=== PATIENT | female | born 1940 ===

== ENCOUNTER 2024-03-14 19:56 | Outpatient (REF) | payer MEDICARE, BC, SELFPAY ==
[2024-03-14 14:44] LABS: Bilirubin Negative (Negative); Blood Trace-intact (Negative); Clarity Sl Cloudy (Clear); Glucose Negative (Negative); Ketones Negative (Negative); Leukocyte Esterase Small (Negative); Nitrite Negative (Negative); Urobilinogen 0.2 mg/dL (Up to 0.2)
[2024-03-14 15:10] LABS: RBC 0-2 HPF (0-2)
[2024-03-14 15:11] LABS: Bacteria Moderate HPF (Negative); C & S Indicated? Yes; Casts Negative LPF (Negative); Crystals Negative HPF (Negative); Epithelial Cells Rare HPF (Negative); Mucus Negative (Negative)
== END 2024-03-14 19:57 | disposition home or self-care (01) ==
LOC: LBN 19:56
PROVIDERS: PCP Nurse Practitioner Family; Visit Provider Nurse Practitioner
DX: C49.0 Malignant neoplasm of connective and soft tissue of head, face and neck (principal)
CPT/HCPCS: 87077; 81003; 81015; 87086; 87186

== ENCOUNTER 2024-03-28 02:46 | Outpatient (RCR) | payer MEDICARE, BC, SELFPAY ==
[2024-03-21] MEDS: Normal Saline Flush 10 ML SYR IVP (08:37)
[2024-03-21 09:18] LABS: Abs Immature Grans 0.03 10^3/uL (0.0-0.06); Absolute Basophil Count 0.05 10^3/uL (0.0-0.2); Absolute Eosinophil Count 0.42 10^3/uL (0.0-0.7); Absolute Monocyte Count 0.59 10^3/uL (0.1-0.8); Absolute Neutrophil Count 4.73 10^3/uL (1.2-6.7); Basophils % 0.7 %; Eosinophils % 5.7 %; HCT 37.9 % (36.0-46.0); HGB 12.5 g/dL (11.2-15.7); Immature Grans % 0.4 %; Lymphocytes % 20.5 %; MCH 29.8 pg (27.0-33.0); MCV 90 fL (80-95); MPV 10.3 fL (8.0-11.0); Monocytes % 8.1 %; Neutrophils % 64.6 %; Platelet Count 255 10^3/uL (130-400); RDW 12.6 % (11.7-14.6); RDW-SD 42.1 fL; WBC 7.32 10^3/uL (4.4-10.8)
[2024-03-21 09:20] LABS: Bilirubin Negative (Negative); Blood Trace-intact (Negative); Clarity Sl Cloudy (Clear); Glucose Negative (Negative); Ketones Negative (Negative); Leukocyte Esterase Large (Negative); Nitrite Positive (Negative); Specific Gravity <= 1.005 (1.005-1.025); Urobilinogen 0.2 mg/dL (Up to 0.2)
[2024-03-21 09:28] LABS: Bacteria Many HPF (Negative); C & S Indicated? Yes; Casts Negative LPF (Negative); Crystals Negative HPF (Negative); Epithelial Cells Few HPF (Negative); Mucus Negative (Negative); RBC 0-2 HPF (0-2); WBC >50 HPF (0-5)
[2024-03-21 09:34] LABS: ALT 19 U/L (14-59); AST 10 U/L (15-37); Albumin 3.3 g/dL (3.4-5.0); Alkaline Phosphatase 71 U/L (46-116); BUN 11 mg/dL (7-18); Bilirubin, Total 0.6 mg/dL (0.2-1.0); CREATININE 0.8 mg/dL (0.55-1.02); Calcium 8.7 mg/dL (8.5-10.1); Chloride 99 mmol/L (98-107); Estimated GFR 73.98 (mL/min/1.73m2); Glucose 138 mg/dL (74-106); Potassium 3.7 mmol/L (3.5-5.1); Sodium 137 mmol/L (136-145)
[2024-03-28] MEDS: Normal Saline Flush 10 ML SYR IVP (09:39)
[2024-03-28 10:00] LABS: Abs Immature Grans 0.05 10^3/uL (0.0-0.06); Absolute Basophil Count 0.05 10^3/uL (0.0-0.2); Absolute Eosinophil Count 0.16 10^3/uL (0.0-0.7); Absolute Monocyte Count 0.45 10^3/uL (0.1-0.8); Absolute Neutrophil Count 3.69 10^3/uL (1.2-6.7); Basophils % 0.8 %; Eosinophils % 2.6 %; HCT 38.3 % (36.0-46.0); HGB 12.4 g/dL (11.2-15.7); Immature Grans % 0.8 %; MCH 29.2 pg (27.0-33.0); MCHC 32.4 % (32.0-36.0); MCV 90 fL (80-95); Monocytes % 7.3 %; Neutrophils % 59.5 %; Platelet Count 347 10^3/uL (130-400); RBC 4.24 10^6/uL (3.93-5.22); RDW 12.8 % (11.7-14.6)
[2024-03-28 10:02] LABS: Bilirubin Negative (Negative); Blood Trace-intact (Negative); Clarity Sl Cloudy (Clear); Glucose Negative (Negative); Ketones Negative (Negative); Leukocyte Esterase Moderate (Negative); Nitrite Positive (Negative); Urobilinogen 0.2 mg/dL (Up to 0.2); pH 6.5 (5-8)
[2024-03-28 10:12] LABS: Bacteria Many HPF (Negative); C & S Indicated? Yes; WBC >50 HPF (0-5)
[2024-03-28 10:20] LABS: ALT 19 U/L (14-59); AST 12 U/L (15-37); Albumin 3.5 g/dL (3.4-5.0); Alkaline Phosphatase 71 U/L (46-116); Anion Gap 9.5 mmol/L (3-11); BUN 9 mg/dL (7-18); Bilirubin, Total 0.36 mg/dL (0.2-1.0); CO2 27.5 mmol/L (21.0-32.0); CREATININE 0.8 mg/dL (0.55-1.02); Calcium 8.4 mg/dL (8.5-10.1); Chloride 100 mmol/L (98-107); Estimated GFR 73.98 (mL/min/1.73m2); Glucose 137 mg/dL (74-106); Potassium 3.8 mmol/L (3.5-5.1); Sodium 137 mmol/L (136-145)
== END 2024-04-03 23:59 | disposition home or self-care (01) ==
LOC: INF 02:46
PROVIDERS: PCP Nurse Practitioner Family; Visit Provider Nurse Practitioner
DX: C49.0 Malignant neoplasm of connective and soft tissue of head, face and neck (principal); Z45.2 Encounter for adjustment and management of vascular access device
CPT/HCPCS: 36591; 80053; 87077; 81003; 81015; 85025; 87086; 87186

== ENCOUNTER 2024-03-30 12:38 | Outpatient (REF) | payer MEDICARE, BC, SELFPAY ==
[2024-03-30 15:48] LABS: Bilirubin Negative (Negative); Blood Trace-intact (Negative); Clarity Sl Cloudy (Clear); Glucose Negative (Negative); Ketones Negative (Negative); Leukocyte Esterase Large (Negative); Nitrite Negative (Negative); Specific Gravity <= 1.005 (1.005-1.025); Urobilinogen 0.2 mg/dL (Up to 0.2)
[2024-03-30 16:10] LABS: Bacteria Many HPF (Negative); C & S Indicated? Yes; Casts Negative LPF (Negative); Crystals Negative HPF (Negative); Epithelial Cells Rare HPF (Negative); Mucus Negative (Negative); RBC 0-2 HPF (0-2); WBC >50 HPF (0-5)
== END 2024-03-30 12:39 | disposition home or self-care (01) ==
LOC: LBN 12:38
PROVIDERS: PCP Nurse Practitioner Family; Visit Provider Nurse Practitioner
DX: C49.0 Malignant neoplasm of connective and soft tissue of head, face and neck (principal)
CPT/HCPCS: 87077; 81003; 81015; 87086; 87186

== ENCOUNTER 2024-04-25 04:52 | Outpatient (RCR) | payer MEDICARE, BC, SELFPAY ==
[2024-04-12] MEDS: Normal Saline Flush 10 ML SYR IVP (09:12)
[2024-04-12 09:21] LABS: Abs Immature Grans 0.04 10^3/uL (0.0-0.06); Absolute Basophil Count 0.05 10^3/uL (0.0-0.2); Absolute Eosinophil Count 0.11 10^3/uL (0.0-0.7); Absolute Monocyte Count 1.12 10^3/uL (0.1-0.8); Absolute Neutrophil Count 4.29 10^3/uL (1.2-6.7); Basophils % 0.7 %; Eosinophils % 1.5 %; HCT 37.7 % (36.0-46.0); HGB 12.3 g/dL (11.2-15.7); Immature Grans % 0.5 %; Lymphocytes % 23.3 %; MCH 29.4 pg (27.0-33.0); MCHC 32.6 % (32.0-36.0); MCV 90 fL (80-95); MPV 9.5 fL (8.0-11.0); Monocytes % 15.3 %; Neutrophils % 58.7 %; Platelet Count 304 10^3/uL (130-400); RBC 4.18 10^6/uL (3.93-5.22); RDW 13.8 % (11.7-14.6); RDW-SD 45.4 fL; WBC 7.31 10^3/uL (4.4-10.8)
[2024-04-12 09:40] LABS: ALT 24 U/L (14-59); AST 17 U/L (15-37); Albumin 3.6 g/dL (3.4-5.0); Alkaline Phosphatase 69 U/L (46-116); Anion Gap 5.3 mmol/L (3-11); BUN 14 mg/dL (7-18); Bilirubin, Total 0.44 mg/dL (0.2-1.0); CO2 29.7 mmol/L (21.0-32.0); CREATININE 0.8 mg/dL (0.55-1.02); Calcium 8.5 mg/dL (8.5-10.1); Chloride 103 mmol/L (98-107); Estimated GFR 73.98 (mL/min/1.73m2); Glucose 133 mg/dL (74-106); Sodium 138 mmol/L (136-145); Total Protein 6.8 g/dL (6.4-8.2)
[2024-04-18] MEDS: Normal Saline Flush 10 ML SYR IVP (09:44)
[2024-04-18 09:53] LABS: Absolute Basophil Count 0.06 10^3/uL (0.0-0.2); Absolute Eosinophil Count 0.08 10^3/uL (0.0-0.7); Absolute Lymphocyte Count 1.81 10^3/uL (1.2-3.4); Absolute Monocyte Count 0.31 10^3/uL (0.1-0.8); Basophils % 0.8 %; Eosinophils % 1.1 %; HCT 35.3 % (36.0-46.0); HGB 11.9 g/dL (11.2-15.7); Immature Grans % 1.3 %; Lymphocytes % 24.3 %; MCH 30.4 pg (27.0-33.0); MCHC 33.7 % (32.0-36.0); MCV 90 fL (80-95); Monocytes % 4.2 %; Neutrophils % 68.3 %; Platelet Count 266 10^3/uL (130-400); RBC 3.91 10^6/uL (3.93-5.22); RDW 13.6 % (11.7-14.6); RDW-SD 44.8 fL; WBC 7.46 10^3/uL (4.4-10.8)
[2024-04-18 09:55] LABS: Bilirubin Negative (Negative); Blood Moderate (Negative); Clarity Clear (Clear); Glucose Negative (Negative); Ketones Negative (Negative); Leukocyte Esterase Small (Negative); Nitrite Negative (Negative); Urobilinogen 0.2 mg/dL (Up to 0.2)
[2024-04-18 10:09] LABS: Bacteria Few HPF (Negative); C & S Indicated? Yes; Casts 0-2 Hyaline LPF (Negative); Crystals Negative HPF (Negative); Epithelial Cells Few HPF (Negative); Mucus Negative (Negative); Other Cells Few Renal (Negative); WBC 20-50 HPF (0-5)
[2024-04-18 10:12] LABS: ALT 19 U/L (14-59); AST 14 U/L (15-37); Albumin 3.4 g/dL (3.4-5.0); Alkaline Phosphatase 71 U/L (46-116); Anion Gap 8.2 mmol/L (3-11); BUN 18 mg/dL (7-18); Bilirubin, Total 0.55 mg/dL (0.2-1.0); CO2 26.8 mmol/L (21.0-32.0); CREATININE 0.8 mg/dL (0.55-1.02); Calcium 8.4 mg/dL (8.5-10.1); Chloride 101 mmol/L (98-107); Estimated GFR 73.98 (mL/min/1.73m2); Glucose 107 mg/dL (74-106); Potassium 3.9 mmol/L (3.5-5.1); Sodium 136 mmol/L (136-145); Total Protein 6.7 g/dL (6.4-8.2)
[2024-04-25] MEDS: Normal Saline Flush 10 ML SYR IVP (10:03)
[2024-04-25 10:06] LABS: Abs Immature Grans 0.03 10^3/uL (0.0-0.06); Absolute Basophil Count 0.03 10^3/uL (0.0-0.2); Absolute Eosinophil Count 0.11 10^3/uL (0.0-0.7); Absolute Monocyte Count 0.31 10^3/uL (0.1-0.8); Absolute Neutrophil Count 2.35 10^3/uL (1.2-6.7); Basophils % 0.7 %; Eosinophils % 2.6 %; HCT 33.7 % (36.0-46.0); HGB 11.1 g/dL (11.2-15.7); Immature Grans % 0.7 %; Lymphocytes % 33.1 %; MCH 29.7 pg (27.0-33.0); MCHC 32.9 % (32.0-36.0); MCV 90 fL (80-95); MPV 10.1 fL (8.0-11.0); Monocytes % 7.3 %; Neutrophils % 55.6 %; Platelet Count 261 10^3/uL (130-400); RBC 3.74 10^6/uL (3.93-5.22); RDW 13.7 % (11.7-14.6); RDW-SD 45.2 fL; WBC 4.23 10^3/uL (4.4-10.8)
[2024-04-25 10:30] LABS: ALT 21 U/L (14-59); AST 15 U/L (15-37); Albumin 3.3 g/dL (3.4-5.0); Alkaline Phosphatase 66 U/L (46-116); Anion Gap 9.5 mmol/L (3-11); BUN 11 mg/dL (7-18); Bilirubin, Total 0.44 mg/dL (0.2-1.0); CO2 28.5 mmol/L (21.0-32.0); CREATININE 0.8 mg/dL (0.55-1.02); Calcium 8.6 mg/dL (8.5-10.1); Chloride 102 mmol/L (98-107); Estimated GFR 73.98 (mL/min/1.73m2); Glucose 116 mg/dL (74-106); Potassium 3.9 mmol/L (3.5-5.1); Sodium 140 mmol/L (136-145); Total Protein 6.6 g/dL (6.4-8.2)
== END 2024-05-04 23:59 | disposition home or self-care (01) ==
LOC: INF 04:52
PROVIDERS: PCP Nurse Practitioner Family; Visit Provider Nurse Practitioner
DX: C49.0 Malignant neoplasm of connective and soft tissue of head, face and neck (principal)
CPT/HCPCS: 36591; 80053; 81003; 81015; 85025; 87086

== ENCOUNTER 2024-05-23 03:07 | Outpatient (RCR) | payer MEDICARE, BC, SELFPAY ==
[2024-05-09] MEDS: Normal Saline Flush 10 ML SYR IVP (08:26)
[2024-05-09 08:46] LABS: Abs Immature Grans 0.12 10^3/uL (0.0-0.06); HCT 35.8 % (36.0-46.0); HGB 11.4 g/dL (11.2-15.7); MCHC 31.8 % (32.0-36.0); MCV 91 fL (80-95); MPV 9.3 fL (8.0-11.0); Platelet Count 346 10^3/uL (130-400); RBC 3.93 10^6/uL (3.93-5.22); RDW 14.5 % (11.7-14.6); RDW-SD 48.1 fL; WBC 7.72 10^3/uL (4.4-10.8)
[2024-05-09 09:01] LABS: ALT 18 U/L (14-59); AST 14 U/L (15-37); Alkaline Phosphatase 74 U/L (46-116); Anion Gap 7.3 mmol/L (3-11); BUN 8 mg/dL (7-18); Bilirubin, Total 0.42 mg/dL (0.2-1.0); CO2 28.7 mmol/L (21.0-32.0); CREATININE 0.9 mg/dL (0.55-1.02); Calcium 8.5 mg/dL (8.5-10.1); Chloride 103 mmol/L (98-107); Estimated GFR 64.23 (mL/min/1.73m2); Glucose 140 mg/dL (74-106); Potassium 3.7 mmol/L (3.5-5.1); Sodium 139 mmol/L (136-145); Total Protein 6.6 g/dL (6.4-8.2)
[2024-05-09 09:38] LABS: Absolute Eosinophil Count 0.23 10^3/uL (0.0-0.7); Absolute Lymphocyte Count 2.16 10^3/uL (1.2-3.4); Absolute Monocyte Count 0.69 10^3/uL (0.1-0.8); Absolute Neutrophil Count 4.32 10^3/uL (1.2-6.7); Atypical Lymphocytes % 1 %; Bands % 0 %; Metamyelocytes % 3
[2024-05-09 09:39] LABS: Diff Comment Manual Differential; Other Cells % 1; RBC Morphology Normal
[2024-05-16] MEDS: Normal Saline Flush 10 ML SYR IVP (09:12)
[2024-05-16 09:41] LABS: Abs Immature Grans 0.05 10^3/uL (0.0-0.06); Absolute Basophil Count 0.07 10^3/uL (0.0-0.2); Absolute Eosinophil Count 0.18 10^3/uL (0.0-0.7); Absolute Lymphocyte Count 1.15 10^3/uL (1.2-3.4); Eosinophils % 2.5 %; HCT 34.1 % (36.0-46.0); HGB 11.1 g/dL (11.2-15.7); Immature Grans % 0.7 %; Lymphocytes % 15.9 %; MCH 28.9 pg (27.0-33.0); MCHC 32.6 % (32.0-36.0); MCV 89 fL (80-95); MPV 9.8 fL (8.0-11.0); Neutrophils % 68.9 %; Platelet Count 336 10^3/uL (130-400); RBC 3.84 10^6/uL (3.93-5.22); RDW 14.2 % (11.7-14.6); RDW-SD 45.3 fL; WBC 7.25 10^3/uL (4.4-10.8)
[2024-05-16 10:04] LABS: ALT 14 U/L (14-59); AST 14 U/L (15-37); Albumin 3.2 g/dL (3.4-5.0); Alkaline Phosphatase 73 U/L (46-116); Anion Gap 8.2 mmol/L (3-11); BUN 16 mg/dL (7-18); Bilirubin, Total 0.76 mg/dL (0.2-1.0); CO2 28.8 mmol/L (21.0-32.0); CREATININE 0.9 mg/dL (0.55-1.02); Calcium 8.9 mg/dL (8.5-10.1); Chloride 100 mmol/L (98-107); Estimated GFR 64.23 (mL/min/1.73m2); Glucose 157 mg/dL (74-106); Potassium 3.9 mmol/L (3.5-5.1); Sodium 137 mmol/L (136-145); Total Protein 7.2 g/dL (6.4-8.2)
[2024-05-23] MEDS: Normal Saline Flush 10 ML SYR IVP (08:58)
[2024-05-23 09:21] LABS: Abs Immature Grans 0.03 10^3/uL (0.0-0.06); Absolute Basophil Count 0.04 10^3/uL (0.0-0.2); Absolute Eosinophil Count 0.11 10^3/uL (0.0-0.7); Absolute Lymphocyte Count 0.83 10^3/uL (1.2-3.4); Absolute Monocyte Count 0.76 10^3/uL (0.1-0.8); Absolute Neutrophil Count 2.24 10^3/uL (1.2-6.7); Eosinophils % 2.7 %; HGB 10.6 g/dL (11.2-15.7); Immature Grans % 0.7 %; Lymphocytes % 20.7 %; MCH 29.2 pg (27.0-33.0); MCHC 33.1 % (32.0-36.0); MCV 88 fL (80-95); MPV 9.8 fL (8.0-11.0); Neutrophils % 55.9 %; Platelet Count 323 10^3/uL (130-400); RBC 3.63 10^6/uL (3.93-5.22); RDW 14.3 % (11.7-14.6); RDW-SD 45.3 fL; WBC 4.01 10^3/uL (4.4-10.8)
[2024-05-23 09:34] LABS: ALT 12 U/L (14-59); AST 13 U/L (15-37); Albumin 2.7 g/dL (3.4-5.0); Alkaline Phosphatase 64 U/L (46-116); Anion Gap 8.7 mmol/L (3-11); BUN 11 mg/dL (7-18); Bilirubin, Total 0.62 mg/dL (0.2-1.0); CO2 27.3 mmol/L (21.0-32.0); Chloride 100 mmol/L (98-107); Glucose 127 mg/dL (74-106); Potassium 3.9 mmol/L (3.5-5.1); Sodium 136 mmol/L (136-145); Total Protein 6.9 g/dL (6.4-8.2)
== END 2024-06-04 23:59 | disposition home or self-care (01) ==
LOC: INF 03:07
PROVIDERS: PCP Nurse Practitioner Family; Visit Provider Nurse Practitioner
DX: C49.0 Malignant neoplasm of connective and soft tissue of head, face and neck (principal); Z45.2 Encounter for adjustment and management of vascular access device
CPT/HCPCS: 36591; 80053; 85025

== ENCOUNTER 2024-06-15 12:09 | Outpatient (CLI) | payer MEDICARE, SELFPAY ==
[2024-06-15 12:13] LABS: ALT 11 U/L (14-59); AST 17 U/L (15-37); Albumin 2.1 g/dL (3.4-5.0); Alkaline Phosphatase 78 U/L (46-116); Anion Gap 3.8 mmol/L (3-11); BUN 15 mg/dL (7-18); Bilirubin, Total 0.46 mg/dL (0.2-1.0); CO2 29.2 mmol/L (21.0-32.0); CREATININE 0.9 mg/dL (0.55-1.02); Calcium 8.5 mg/dL (8.5-10.1); Chloride 100 mmol/L (98-107); Estimated GFR 64.23 (mL/min/1.73m2); Glucose 104 mg/dL (74-106); Magnesium 1.8 mg/dL (1.8-2.4); Potassium 4.1 mmol/L (3.5-5.1); Sodium 133 mmol/L (136-145); Total Protein 6.4 g/dL (6.4-8.2)
== END 2024-06-15 12:10 | disposition home or self-care (01) ==
LOC: LBO 12:14
PROVIDERS: PCP Nurse Practitioner Family; Visit Provider Preventive Medicine Undersea and Hyperbaric Medicine
DX: C49.0 Malignant neoplasm of connective and soft tissue of head, face and neck (principal)
CPT/HCPCS: 36415; 80053; 83735

== ENCOUNTER 2024-07-20 11:14 | Outpatient (RCR) | payer MEDICARE, BC, SELFPAY ==
[2024-07-20] MEDS: Normal Saline Flush 10 ML SYR IVP (12:11)
[2024-07-20 12:29] LABS: ALT 15 U/L (14-59); AST 15 U/L (15-37); Albumin 2.6 g/dL (3.4-5.0); Alkaline Phosphatase 79 U/L (46-116); Anion Gap 5.5 mmol/L (3-11); BUN 12 mg/dL (7-18); Bilirubin, Total 0.28 mg/dL (0.2-1.0); CO2 28.5 mmol/L (21.0-32.0); CREATININE 0.8 mg/dL (0.55-1.02); Calcium 8.9 mg/dL (8.5-10.1); Chloride 103 mmol/L (98-107); Estimated GFR 73.98 (mL/min/1.73m2); Glucose 92 mg/dL (74-106); Magnesium 1.9 mg/dL (1.8-2.4); Potassium 3.7 mmol/L (3.5-5.1); Sodium 137 mmol/L (136-145); Total Protein 7.1 g/dL (6.4-8.2)
== END 2024-08-04 23:59 | disposition home or self-care (01) ==
LOC: INF 11:14
PROVIDERS: PCP Nurse Practitioner Family; Visit Provider Preventive Medicine Undersea and Hyperbaric Medicine
DX: C49.0 Malignant neoplasm of connective and soft tissue of head, face and neck (principal); Z45.2 Encounter for adjustment and management of vascular access device
CPT/HCPCS: 36591; 80053; 96523; 83735